=== PATIENT | female | born 1965 | race Caucasian/White ===

== ENCOUNTER 2021-03-11 06:48 | Emergency (ER) | payer MEDICAID ==
[~2021-03-11] VITALS: Ht 160 cm; Wt 54.4 kg
[2021-03-11] MEDS ORDERED: ZOFRAN ODT4 MG DISSOLVE ×2 (06:55→07:50)
[2021-03-11] MEDS ORDERED: NORVASC5 MG PO (06:55)
[2021-03-11] MEDS ORDERED: FLUOXETINE HCL40 MG PO (06:56)
[2021-03-11] MEDS ORDERED: COZAAR 25 MG TA25 M2 PO (06:57)
[2021-03-11] MEDS ORDERED: LORAZEPAM 0.50.5 MG PO (06:57)
[2021-03-11] MEDS ORDERED: ATIVAN1 M1 PO (07:50)
[2021-03-11 08:01] VITALS: BP 134/72
== END 2021-03-11 08:03 | disposition home or self-care (01) ==
LOC: M.ERS 06:48
DX: F10.129 Alcohol abuse with intoxication, unspecified (principal); Y90.9 Presence of alcohol in blood, level not specified; I10 Essential (primary) hypertension